=== PATIENT | female | born 1960 | race Hispanic/Latino ===

== ENCOUNTER 2017-07-12 19:40 | Emergency (ER) | payer SELFPAY ==
[2017-07-12] MEDS ORDERED: Ketorolac Tromethamine 30 MG/ML VIAL ONE (22:25)
--- NOTE | 2017-07-12 23:38 | RAD ---
RIGHT KNEE RADIOGRAPHS: Date: 07-12-17 Provided Clinical History: Right knee pain without injury. FINDINGS: No fracture or other acute osseous abnormality is evident. Osteophyte formation is seen about the kne e. Alignment appears anatomic. Joint spaces appear preserved. No evidence for significant knee joint capsular distention. IMPRESSION: Mild degenerative arthrosis of the right knee. POS: [facility]
== END 2017-07-12 23:40 | disposition home or self-care (01) ==
LOC: ERS 19:40
DX: M25.561 Pain in right knee (principal); E78.5 Hyperlipidemia, unspecified; E11.9 Type 2 diabetes mellitus without complications; I10 Essential (primary) hypertension
CPT/HCPCS: 96372; J1885

== ENCOUNTER 2017-07-30 22:52 | Emergency (ER) | payer SELFPAY ==
[2017-07-31] MEDS ORDERED: Ketorolac Tromethamine 30 MG/ML VIAL ONE (00:42)
[2017-07-31] MEDS ORDERED: Lidocaine 1% PF 5 ML VIAL ONE (00:42)
== END 2017-07-31 01:20 | disposition home or self-care (01) ==
LOC: ERS 22:52
DX: K02.9 Dental caries, unspecified (principal); E11.9 Type 2 diabetes mellitus without complications; E78.5 Hyperlipidemia, unspecified; I10 Essential (primary) hypertension
CPT/HCPCS: 96372; J1885; J2001

== ENCOUNTER 2017-12-14 20:13 | Emergency (ER) | payer SELFPAY ==
[2017-12-14 20:55] LABS: Bilirubin Negative (Negative); Blood, Urine Negative (Negative); Clarity CLEAR (Clear); Glucose, Urine (Dipstick) >=1000 mg/dL (Negative); Leukocyte Negative (Negative); Nitrite Negative (Negative); Protein, Urine (Dipstick) Negative (Neg-Trace); Specific Gravity, Urine 1.021 (1.002-1.036); Urobilinogen 0.2 mg/dL (0.2-1.0)
[2017-12-14 21:00] LABS: #Eosinphils 0.1 thou/uL (0.0-0.7); #Lymphocytes 1.6 thou/uL (1.20-3.40); #Monocytes 0.7 thou/uL (0.11-0.59); #Neutrophils 5.3 thou/uL (1.40-6.50); %Basophils 0.4 % (0.0-1.0); %Eosinophils 1.4 % (0.0-10.0); %Lymphocytes 20.4 % (21.0-51.0); %Monocytes 8.9 % (0.0-10.0); %Neutrophils 68.9 % (42.0-75.0); Hemoglobin 13.6 g/dL (12.0-16.0); Mean Corpuscular HGB CONC 33.9 g/dL (32.0-36.0); Mean Corpuscular Hemoglobin 30.2 pg (27.0-31.0); Mean Platelet Volume 8.3 fL (7.4-10.4); Platelet Count 230 thou/uL (130-400); RBC Distribution Width 11.5 % (11.5-14.5); Red Blood Cell (RBC) Count 4.51 mill/uL (4.20-5.40); White Blood Cell (WBC) Count 7.6 thou/uL (4.8-10.8)
[2017-12-14 21:20] LABS: ALT (SGPT) 19 U/L (8-55); AST (SGOT) 17 U/L (5-34); Albumin 4.1 g/dL (3.5-5.0); Alkaline Phosphatase 141 U/L (40-150); Anion Gap 12 mmol/L (10-20); BUN (Urea Nitrogen) 13 mg/dL (9.8-20.1); Bilirubin, Total 0.8 mg/dL (0.2-1.2); Calc. Creatinine Clearance 0 mL/min (70-130); Calcium 9.5 mg/dL (7.8-10.44); Carbon Dioxide 26 mmol/L (22-29); Chloride 99 mmol/L (98-107); Estimated GFR-MDRD 81; Globulin 3.5 g/dL (2.4-3.5); Glucose 352 mg/dL (70-105); Lipase 24 U/L (8-78); Protein, Total 7.6 g/dL (6.0-8.3); Sodium 133 mmol/L (136-145)
[2017-12-14] MEDS ORDERED: Ketorolac Tromethamine 30 MG/ML VIAL ONE (22:11)
--- NOTE | 2017-12-14 23:06 | CT ---
CT ABDOMEN NONCONTRAST CT PELVIS NONCONTRAST: (urolithiasis protocol) DATE: 12/14/17 TIME: 10:40 p.m. HISTORY: 57-year-old female with right flank pain radiating to right lower abdomen. COMPARISON: 09/25/13. TECHNIQUE: IV injection of iodinated contrast media: none Oral contrast media: none FINDINGS: Other than for urolithiasis, the lack of IV and oral contrast limits the evaluation. There is an approximately 1.5 cm wide small defect in the ventral abdominal wall, slightly to the rig ht of midline, through which a disproportionately large amount of intraperitoneal fat has herniated s uperficial to the right lower quadrant abdominal wall. The hernia sac measures approximately 12.5 x 6 .5 x 11 cm. The hernia defect is unchanged in size since 2013. It does not contain any bowel loops. T he uterus is enlarged by multiple uterine fibroids, including calcified ones, similar to prior CT. Th ere are no renal, ureteral, or bladder calculi. No hydronephrosis. The appendix is not identified wit h certainty. No overt signs of acute appendicitis. Moderate amount of colonic stool, especially in th e right hemicolon. Cholecystectomy clips. Within the limitations of a noncontrast scan, no major path ology identified involving the liver, abdominal aorta, kidneys, adrenals, pancreas, urinary bladder o r spleen. No evidence of acute colonic diverticulitis. No small bowel dilation. No free fluid or free air within the abdominal cavity or pelvic cavity. No major interval change is detected compared to 09/25/13. IMPRESSION: 1. No urolithiasis or obstructive uropathy. 2. Fat containing right paramedian ventral hernia at the right lower quadrant. 3. Multiple uterine leiomyomata (fibroids). 4. Status post cholecystectomy. 5. Increased stool in right colon. DELLA R POS: [facility]
== END 2017-12-15 00:30 | disposition home or self-care (01) ==
LOC: ERS 20:13
DX: K43.9 Ventral hernia without obstruction or gangrene (principal); E78.5 Hyperlipidemia, unspecified; E11.9 Type 2 diabetes mellitus without complications; I10 Essential (primary) hypertension
CPT/HCPCS: 36415; 36416; 74176; 80053; 81003; 83690; 85025; 96361; 96374; J1885

== ENCOUNTER 2018-07-27 23:48 | Emergency (ER) | payer SELFPAY | END 2018-07-28 00:16 | disposition home or self-care (01) | LOC: ERS 23:48 | DX: K02.9 Dental caries, unspecified (principal); K03.81 Cracked tooth; E78.5 Hyperlipidemia, unspecified; E11.9 Type 2 diabetes mellitus without complications; I10 Essential (primary) hypertension | CPT/HCPCS: 99282 ==

== ENCOUNTER 2019-01-18 20:26 | Emergency (ER) | payer SELFPAY ==
[2019-01-18] MEDS ORDERED: Ketorolac Tromethamine 60 MG/2 ML VIAL ONE (20:44)
== END 2019-01-18 21:08 | disposition home or self-care (01) ==
LOC: SCSER 20:26
DX: K02.9 Dental caries, unspecified (principal); E78.5 Hyperlipidemia, unspecified; E11.9 Type 2 diabetes mellitus without complications; I10 Essential (primary) hypertension; Z79.899 Other long term (current) drug therapy; Z79.84 Long term (current) use of oral hypoglycemic drugs
CPT/HCPCS: 96372; 99282; J1885

== ENCOUNTER 2019-03-30 19:35 | Observation (INO) | payer SELFPAY ==
[2019-03-30 20:02] LABS: #Eosinphils 0.1 thou/uL (0.0-0.7); #Lymphocytes 1.8 thou/uL (1.20-3.40); #Monocytes 0.6 thou/uL (0.11-0.59); #Neutrophils 4.1 thou/uL (1.40-6.50); %Basophils 0.5 % (0.0-1.0); %Eosinophils 1.7 % (0.0-10.0); %Lymphocytes 26.9 % (21.0-51.0); %Monocytes 9.3 % (0.0-10.0); %Neutrophils 61.6 % (42.0-75.0); Hemoglobin 13.3 g/dL (12.0-16.0); Mean Corpuscular HGB CONC 33.9 g/dL (32.0-36.0); Mean Corpuscular Hemoglobin 30.2 pg (27.0-31.0); Mean Platelet Volume 9.6 fL (7.4-10.4); Platelet Count 204 thou/uL (130-400); RBC Distribution Width 11.5 % (11.5-14.5); Red Blood Cell (RBC) Count 4.39 mill/uL (4.20-5.40); White Blood Cell (WBC) Count 6.7 thou/uL (4.8-10.8)
[2019-03-30 20:20] LABS: ALT (SGPT) 14 U/L (8-55); AST (SGOT) 13 U/L (5-34); Albumin 3.9 g/dL (3.5-5.0); Alkaline Phosphatase 148 U/L (40-110); Anion Gap 14 mmol/L (10-20); BUN (Urea Nitrogen) 14 mg/dL (9.8-20.1); Bilirubin, Total 0.6 mg/dL (0.2-1.2); CK (CPK) 55 U/L (29-168); Calc. Creatinine Clearance 0 mL/min (70-130); Calcium 8.8 mg/dL (7.8-10.44); Carbon Dioxide 24 mmol/L (22-29); Chloride 99 mmol/L (98-107); Estimated GFR-MDRD 58; Globulin 3.1 g/dL (2.4-3.5); Glucose 511 mg/dL (70-105); Lipase 54 U/L (8-78); Potassium 4.1 mmol/L (3.5-5.1); Sodium 133 mmol/L (136-145)
[2019-03-30] MEDS ORDERED: Nitroglycerin 2% Ointment 1 INCH/1 GM Packet ONE (21:06)
[2019-03-30] MEDS ORDERED: Aspirin Chewable 81 MG TAB ONE (21:06)
--- NOTE | 2019-03-30 23:28 | RAD ---
XR Chest 1 View Portable History: Chest pain Comparison: Radiograph March 04, 2016 Findings: Lungs are clear. No pneumothorax or effusion. Cardiac silhouette and mediastinal contours a re within normal limits. No acute osseous abnormality. Right upper quadrant surgical clips. Impression: No acute intrathoracic abnormality.
[2019-03-30 23:31] LABS: Troponin I Less than 0.010 ng/mL (< 0.028)
[2019-03-31 00:35] VITALS: BMI 38.1
[2019-03-31] MEDS ORDERED: Acetaminophen 325 MG TAB PO PRN (00:42)
[2019-03-31 04:44] LABS: Cardiac Risk 3.6 (Less than 4.5); Troponin I Less than 0.010 ng/mL (< 0.028)
[2019-03-31] MEDS ORDERED: Aspirin 325 MG TAB PO SCH (08:00)
[2019-03-31] MEDS ORDERED: FLU VACC QS2019-20(6MOS UP)/PF 60 MCG/0.5 ML SYRINGE IM ONE (09:00)
[2019-03-31 12:26] VITALS: BP 122/57; TEMP 98.6
--- NOTE | 2019-03-31 16:06 | SS ---
DATE OF ADMISSION: 03/31/2019 DATE OF DISCHARGE: 03/31/2019 REASON FOR ADMISSION: Chest pain. HISTORY OF PRESENTING ILLNESS: The patient gives history of having left-sided chest pain, which was 4 to 5/10 in intensity, which started yesterday around 4 p.m. She was sitting quietly when this started. She has had some radiation to the back of this pain. This was associated with shortness of breath. Had some dry cough and felt feverish as well. Had some nasal congestion and postnasal drip as well. All of it started yesterday. No complaints of altered phlegm, palpitations, PND, or orthopnea. Currently, her chest pain has completely resolved. PAST MEDICAL AND SURGICAL HISTORY: Hypertension, diabetes mellitus type 2, dyslipidemia, history of cholecystectomy, , tubal ligation, hypothyroidism. Normal cardiac catheterization done in August of [address] Medina. Ejection fraction was 45% on it. She has had another cardiac cath done in September of 2012 with ejection fraction of 35%. PERSONAL HISTORY: Does not abuse alcohol or drugs. No history of smoking. FAMILY HISTORY: Mother is living and healthy. Father in his 50s from diabetes and its complications. CURRENT MEDICATIONS: The patient is on, 1. Coreg 3.125 mg twice daily. 2. Synthroid 25 mcg p.o. daily. 3. Lisinopril with hydrochlorothiazide 10/12.5 mg p.o. daily. 4. Pravachol 10 mg p.o. at bedtime. 5. Aspirin 81 mg p.o. daily. 6. Metformin 1000 mg daily. ALLERGIES: NO KNOWN DRUG ALLERGIES. CODE STATUS: Full. REVIEW OF SYSTEMS: CONSTITUTIONAL: Negative for weight loss or gain, ability to conduct usual activities. SKIN: Negative for rash, itching. EYES: Negative for double vision, pain. ENT/MOUTH: Negative for nose bleeding, neck stiffness, pain, tenderness. CARDIOVASCULAR: Negative for palpitations, dyspnea on exertion, orthopnea. RESPIRATORY: Negative for shortness of breath, wheezing, cough, hemoptysis, fever or night sweats. GASTROINTESTINAL: Negative for poor appetite, abdominal pain, heartburn, nausea, vomiting, constipation, or diarrhea. GENITOURINARY: Negative for urgency, frequency, dysuria, nocturia. MUSCULOSKELETAL: Negative for pain, swelling. NEUROLOGIC/PSYCHIATRIC: Negative for anxiety, depression. ALLERGY/IMMUNOLOGIC: Negative for skin rash, bleeding tendency. PHYSICAL EXAMINATION: GENERAL: The patient is a 58-year-old female, who is currently not in any acute distress. VITAL SIGNS: Blood pressure 148/66, pulse 74 per minute, respiratory rate 18 per minute, temperature 99.4 degrees Fahrenheit, saturating 98% on room air. NECK: Supple. No elevated JVD. HEENT: Eyes; extraocular muscles intact. Pupils reacting to light. Oral cavity, mucous membranes are moist. No exudates or congestion. CARDIOVASCULAR: S1 and S2 heard. Regular rhythm. RESPIRATORY: Air entry 1+ bilateral. Scattered rhonchi plus no rales or wheezes. ABDOMEN: Soft. Bowel sounds heard. No tenderness, rigidity, or guarding. EXTREMITIES: No peripheral edema or calf tenderness. VASCULAR: Peripheral pulses 2+ bilateral. No ischemic ulcerations or gangrene. CENTRAL NERVOUS SYSTEM: No gross focal deficits noted. The patient is alert, awake, and oriented well. PSYCHIATRIC: The patient's mood is euthymic. No hallucinations or delusions. LABORATORY DATA: Chest x-ray done shows no acute cardiopulmonary abnormality. EKG done shows normal sinus rhythm at 76 beats per minute. There is poor R-wave progression. Total cholesterol 171, triglycerides 151, LDL 93, HDL 48, lipase 54. Troponin x3 negative. BNP 20. AST and ALT within normal limits. Albumin is 3.9. Serum sugar was 511 on admission, but it was around 8 p.m. yesterday. BUN 14, creatinine 0.9, serum bicarb 24. White count of 6, H and H 13 and 39, platelet count 204 with 61% neutrophils, MCV is 89. CLINICAL IMPRESSION AND PLAN: The patient will be shortly discharged home. She has uncontrolled diabetes and atypical chest pain. The patient has had 2 prior cardiac catheterizations done with normal coronaries. Her last coronary catheterization was in August of 2015. The patient takes metformin 1 g daily and has been advised to take it twice daily. She was given Augmentin 875 mg twice daily for upper respiratory infection. She needs to continue all other medications as before including Coreg, Synthroid, lisinopril with hydrochlorothiazide, and Pravachol. She is counseled to follow up with her primary care physician in 1 week, that is at [facility], Dr. Fink. She is otherwise hemodynamically stable and will be shortly discharged home. Please note, this is a same day admit and discharge under observation status. Job ID: [id number]
== END 2019-03-31 13:17 | disposition home or self-care (01) ==
LOC: ERS 19:35 → 2SW 03-31 00:34
PROVIDERS: ADMIT Internal Medicine; ATTEND Internal Medicine
DX: R07.89 Other chest pain (principal); I10 Essential (primary) hypertension; E11.9 Type 2 diabetes mellitus without complications; E03.9 Hypothyroidism, unspecified; Z79.82 Long term (current) use of aspirin; Z79.84 Long term (current) use of oral hypoglycemic drugs; Z79.899 Other long term (current) drug therapy
CPT/HCPCS: 36415; 36416; 71045; 80053; 80061; 82550; 83690; 83880; 84484; 85025; 93005; 94760; 96360; G0378

== ENCOUNTER 2019-08-09 21:53 | Observation (INO) | payer SELFPAY ==
[~2019-08-09 21:53] MED LIST: Iopamidol-370 76% 500 ML 1 ML ONE
[2019-08-09 22:30] LABS: #Basophils 0.1 thou/uL (0.0-0.2); #Eosinphils 0.2 thou/uL (0.0-0.7); #Lymphocytes 1.8 thou/uL (1.20-3.40); #Monocytes 0.6 thou/uL (0.11-0.59); %Basophils 1.1 % (0.0-1.0); %Eosinophils 2.4 % (0.0-10.0); %Monocytes 9.2 % (0.0-10.0); %Neutrophils 60.4 % (42.0-75.0); Hemoglobin 14.2 g/dL (12.0-16.0); Mean Corpuscular HGB CONC 33.2 g/dL (32.0-36.0); Mean Corpuscular Hemoglobin 30.4 pg (27.0-31.0); Mean Corpuscular Volume 91.7 fL (78.0-98.0); Mean Platelet Volume 9.8 fL (7.4-10.4); Platelet Count 229 thou/uL (130-400); RBC Distribution Width 11.3 % (11.5-14.5); Red Blood Cell (RBC) Count 4.68 mill/uL (4.20-5.40); White Blood Cell (WBC) Count 6.6 thou/uL (4.8-10.8)
[2019-08-09] MEDS ORDERED: Acetaminophen 500 MG TAB ONE (22:32)
[2019-08-09] MEDS ORDERED: Nitroglycerin 0.4 MG TAB 1 EACH ONE (22:32)
--- NOTE | 2019-08-09 22:41 | RAD ---
PORTABLE CHEST ONE VIEW: 08/09/19 at 9:45 p.m. HISTORY: Chest pain, dizziness, headache. FINDINGS/IMPRESSION: Comparison made with exam of 03/30/19. The heart size is enlarged. There is mild pulmonary vascular congestion. No lobar consolidation, pne umothoraces, or large effusions are seen. POS: [facility]
[2019-08-09 22:50] LABS: ALT (SGPT) 16 U/L (8-55); AST (SGOT) 14 U/L (5-34); Albumin 4.1 g/dL (3.5-5.0); Alkaline Phosphatase 143 U/L (40-110); Anion Gap 12 mmol/L (10-20); BUN (Urea Nitrogen) 13 mg/dL (9.8-20.1); Bilirubin, Total 0.6 mg/dL (0.2-1.2); Calc. Creatinine Clearance 0 mL/min (70-130); Calcium 9.2 mg/dL (7.8-10.44); Carbon Dioxide 29 mmol/L (22-29); Chloride 98 mmol/L (98-107); Estimated GFR-MDRD 50; Globulin 3.2 g/dL (2.4-3.5); Glucose 529 mg/dL (70-105); Lipase 29 U/L (8-78); Protein, Total 7.3 g/dL (6.0-8.3); Sodium 135 mmol/L (136-145)
[2019-08-09] MEDS ORDERED: Aspirin Chewable 81 MG TAB ONE (23:07)
--- NOTE | 2019-08-09 23:32 | CT ---
CTA CHEST WITH IV CONTRAST AND 3D POSTPROCESSING CTA ABDOMEN WITH IV CONTRAST WITH 3D POSTPROCESSIN08/09/19 HISTORY: Chest pain, headache, abdominal pain. FINDINGS: There is good contrast opacification of the thoracic aorta without aneurysmal dissection. There is go od flow in the celiac axis, SMA, DEEDEE, and both renal arteries. The central pulmonary arteries are well opacified without filling defects to suggest central pulmonar y embolism. No pleural or pericardial effusions are identified. No pneumothoraces, lobar consolidatio n, or lung bases or nodules are seen. No free air or free fluid is noted in the abdomen or pelvis. The patient is post cholecystectomy. The solid organs are unremarkable The small bowel loops are not abnormally dilated. There are degenerative changes in the spine. IMPRESSION: No CT evidence of aortic aneurysm or dissection. POS: [facility]
[2019-08-10 01:15] LABS: Bilirubin Negative (Negative); Blood, Urine Negative (Negative); Clarity Clear (Clear); Glucose, Urine (Dipstick) Greater than 1000 mg/dL (Negative); Leukocyte Negative Leu/uL (Negative); Nitrite Negative (Negative); Protein, Urine (Dipstick) Negative (Neg-Trace); Urobilinogen Normal mg/dL (Less than 2)
[2019-08-10 02:01] LABS: Troponin I Less than 0.010 ng/mL (< 0.028)
[2019-08-10] MEDS ORDERED: Acetaminophen 325 MG TAB PO PRN (02:28)
[2019-08-10] MEDS ORDERED: Acetaminophen 650 MG Suppository PR PRN (02:28)
[2019-08-10] MEDS ORDERED: Nitroglycerin 0.4 MG TAB (25 Tab Bottle) PO PRN (02:33)
[2019-08-10] MEDS ORDERED: Dextrose 50% Abboject 50 ML SYRINGE SLOW IVP PRN (02:57)
[2019-08-10] MEDS ORDERED: HumaLOG 300 UNITS/3 ML VIAL SC PRN ×2 (02:57)
[2019-08-10] MEDS ORDERED: Dextrose 5% in Water 1,000 ML IV PRN (02:57)
[2019-08-10 03:28] VITALS: BMI 34.5
--- NOTE | 2019-08-10 04:15 | HP ---
TIME OF ASSESSMENT: 0100 hours. CHIEF COMPLAINT: Chest tightness and feeling generally unwell. PRIMARY CARE PHYSICIAN: [facility]. HISTORY OF PRESENT ILLNESS: Ms. Hercules is a 58-year-old woman, who is being admitted for ACS rule out, presenting with multiple complaints including chest discomfort that occurred earlier today. The patient states she is unable to describe the sensation in her chest. States at times it feels like a heaviness or pressure, and she is also feeling emotional. The patient denies being under any particularly increased stress. Denies any shortness of breath. She does report having a mild headache and nausea that started earlier this afternoon right before the chest discomfort began. She states she vomited a small amount once. Reports feeling very cold, but denies any recent fevers or sweats. No headaches or dizziness. Denies any abdominal pain or cramping. No urinary symptoms. The patient reports undergoing cardiac catheterization in the past. Per our records, it appears this was done in August [address] Medina. At that time, she was noted to have a normal left main, normal LAD, normal circumflex, and normal right coronary artery. She was noted to have mild left ventricular hypokinesis with an EF of 45% to 50%. 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 ED COURSE: In the Emergency department, the patient underwent an EKG showing normal sinus rhythm with a heart rate of 70. No ST changes or T-wave abnormalities. She had laboratory studies done which demonstrated a white count of 6.6, hemoglobin 14.2, hematocrit 42.9, platelets 229, and neutrophils 60.4%. Alkaline phosphatase 143. LFTs unremarkable. Glucose elevated at 529. Sodium 135, potassium 4.0, chloride 98, carbon dioxide 29, anion gap 12, BUN 13, creatinine 1.12, GFR 50. The patient has chronic kidney disease. Lipase normal. Initial troponin negative. She had a chest x-ray done showing an enlarged heart with mild pulmonary vascular congestion. No lobar consolidation, pneumothoraces, or large effusion seen. The patient had a CT dissection done as well which showed no CT evidence of aortic aneurysm or dissection. She received 243 mg of aspirin, 2 L of normal saline, one dose of nitroglycerin sublingual, and one dose of Tylenol Extra Strength at 1000 mg. PAST MEDICAL HISTORY: 1. Type 2 diabetes mellitus. 2. Hyperlipidemia. 3. Hypertension. PAST SURGICAL HISTORY: 1. Cholecystectomy. 2. . 3. Tubal ligation. 4. CABG. SOCIAL HISTORY: The patient denies any tobacco use, alcohol consumption, or illicit drug use. ALLERGIES: NO KNOWN DRUG ALLERGIES. CURRENT MEDICATIONS: 1. Lisinopril/hydrochlorothiazide. 2. Carvedilol. 3. Nitroglycerin. 4. Metformin. 5. Pravastatin. 6. Aspirin. 7. Levothyroxine. PHYSICAL EXAMINATION: GENERAL: The patient appears generally unwell, but is in no acute distress. VITAL SIGNS: Temperature 98, pulse 71, blood pressure 135/75, respirations 19, and O2 saturation 96% on room air. HEENT: Normocephalic and atraumatic. Pupils are equal, round, and reactive to light. Sclerae without icterus. Oropharynx is clear. NECK: Supple. LUNGS: Clear to auscultation bilaterally without any wheezes, rales, or rhonchi. CARDIAC: Regular rate and rhythm. Mild discomfort with palpation of the anterior chest wall. ABDOMEN: Soft, nontender, nondistended. Normoactive bowel sounds present. No guarding or rigidity. No renal angle tenderness. EXTREMITIES: No lower leg swelling or edema. NEUROLOGIC: Alert and oriented x3. SKIN: Warm and dry. INVESTIGATIONS: As mentioned above in HPI. IMPRESSION AND PLAN: Ms. Diomedes Brower is a 58-year-old woman, who is being admitted for the following. 1. Acute coronary syndrome rule out. We will continue to trend troponins. It has been few years since her last stress test, and she had cardiac catheterization that showed normal coronary arteries back in August of 2015. We will go ahead and plan for stress test in the morning. We will add on TSH, BNP, and lipid panel with a.m. labs. We will continue daily aspirin. 2. General malaise and nausea/vomiting. The patient without any loose stools. Vomiting occurred just once. She does report generalized aching and feeling unwell. We will check for any signs of underlying infection. We will add lactic acid and procalcitonin. We will obtain a urinalysis. We will also screen for influenza. 3. Type 2 diabetes mellitus. Monitor blood glucose. Resume home medications once verified. Initiate sliding scale. 4. Hypertension. Monitor blood pressure and resume home medications once verified. 5. Hyperlipidemia. Resume home medications once verified. As mentioned above, we will obtain lipid panel in the a.m. 6. Chronic kidney disease. The patient has received 2 L of normal saline in the ER. Continue to monitor renal function. 7. Gastrointestinal prophylaxis with famotidine. 8. Deep venous thrombosis prophylaxis. Walking program consulted. 9. Code status, full. Surrogate decision maker is her , Vikram Falk. Case discussed with Dr. Bui, who agrees with plan of care as described above. Job ID: [id number]
[2019-08-10 05:05] LABS: #Basophils 0.1 thou/uL (0.0-0.2); #Eosinphils 0.2 thou/uL (0.0-0.7); #Lymphocytes 2.1 thou/uL (1.20-3.40); #Monocytes 0.6 thou/uL (0.11-0.59); #Neutrophils 3.8 thou/uL (1.40-6.50); %Basophils 1.1 % (0.0-1.0); %Eosinophils 2.4 % (0.0-10.0); %Neutrophils 56.6 % (42.0-75.0); Hemoglobin 12.5 g/dL (12.0-16.0); Mean Corpuscular HGB CONC 33.6 g/dL (32.0-36.0); Mean Corpuscular Hemoglobin 30.7 pg (27.0-31.0); Mean Corpuscular Volume 91.4 fL (78.0-98.0); Mean Platelet Volume 9.8 fL (7.4-10.4); Platelet Count 205 thou/uL (130-400); RBC Distribution Width 11.3 % (11.5-14.5); Red Blood Cell (RBC) Count 4.06 mill/uL (4.20-5.40); White Blood Cell (WBC) Count 6.6 thou/uL (4.8-10.8)
[2019-08-10 05:17] LABS: Hemoglobin A1c Greater than 14.0 % (4.0-6.0)
[2019-08-10 05:21] LABS: Anion Gap 12 mmol/L (10-20); BUN (Urea Nitrogen) 14 mg/dL (9.8-20.1); Calc. Creatinine Clearance 136 mL/min (70-130); Calcium 8.3 mg/dL (7.8-10.44); Carbon Dioxide 25 mmol/L (22-29); Cardiac Risk 3.5 (Less than 4.5); Chloride 104 mmol/L (98-107); Cholesterol 146 mg/dl (< 200 Desired); Estimated GFR-MDRD 86; Glucose 295 mg/dL (70-105); HDL Cholesterol 42 mg/dL (>60 Neg Risk); LDL Cholesterol, Calculated 63 mg/dL; Potassium 3.6 mmol/L (3.5-5.1); Sodium 137 mmol/L (136-145); Triglycerides 204 mg/dL (Less than 150)
[2019-08-10 05:23] LABS: Lactic Acid 1.7 mmol/L (0.5-2.2)
[2019-08-10] MEDS ORDERED: Aspirin 81 mg Enteric Coated Tablet PO SCH (09:00)
[2019-08-10] MEDS ORDERED: Famotidine/PF 20 mg/2ml Vial SLOW IVP SCH (09:00)
--- NOTE | 2019-08-10 13:06 | NM ---
Nuclear medicine cardiac SPECT with EF and wall motion, stress only HISTORY: Chest pain Adenosine sestamibi stress only exam is performed. Patient was injected with 27.7 mCi technetium 99 M sestamibi intravenously for stress images. Multiple SPECT images in the short axis, vertical long axis, horizontal long axis demonstrates no sca n evidence for overt infarct or ischemia. LHR 0.27 EDV 101 mL Ejection fraction 67% Myocardial perfusion wall motion is unremarkable. IMPRESSION: Unremarkable cardiac SPECT stress only with wall motion and ejection fraction.
[2019-08-10 15:33] VITALS: BP 121/58; TEMP 98.2
[2019-08-10] MEDS ORDERED: ADENOSINE 60 MG/20 ML VIAL ONE (16:09)
--- NOTE | 2019-08-10 16:58 | EKG ---
Test Reason : Blood Pressure : / mmHG Vent. Rate : 063 BPM Atrial Rate : 063 BPM P-R Int : 148 ms QRS Dur : 082 ms QT Int : 418 ms P-R-T Axes : 074 024 020 degrees QTc Int : 427 ms Normal sinus rhythm Normal ECG Confirmed by YARI TAVAREZ ([id number]) on 08/10/2019 4:57:57 PM Referred By: CAROL Confirmed By:YARI TAVAREZ
--- NOTE | 2019-08-10 17:28 | DIS ---
DATE OF ADMISSION: 08/10/2019 DATE OF DISCHARGE: 08/10/2019 DISCHARGE DIAGNOSES: 1. Chest pain, noncardiac. 2. General malaise with nausea and vomiting, resolved. 3. Diabetes mellitus type 2, uncontrolled. 4. Hypertension, stable. 5. Hyperlipidemia. CONSULTATIONS: None. PERTINENT LABORATORY DATA AND X-RAY FINDINGS: Creatinine ranged between 0.70 to 1.12, estimated GFR ranged between 50 to 86. Hemoglobin A1c of 14, magnesium level 1.5, alkaline phosphatase 143. Troponin-I negative x3. BNP 29.5. Total cholesterol 146, triglycerides 204, HDL 42, LDL 63. Lipase 29. TSH 7.67. CBC within normal limits. Influenza A and B antigen dated 08/10/[address] of the chest with aortic dissection protocol dated 08/09/2019, showed no evidence of dissection. Portable chest x-ray dated 08/09/2019, showed no acute cardiopulmonary process. 2D transthoracic echocardiogram dated 08/10/2019, showed ejection fraction 50% to 55%. Diastolic dysfunction noted. Cardiolite stress test dated 08/10/2019, showed no evidence for reversible or fixed ischemia with calculated ejection fraction of 67%. HOSPITAL COURSE: The patient was observed on the telemetry unit after initially presenting with chest pain and general malaise. The patient underwent serial cardiac biomarkers x3, which were negative, undergoing Cardiolite stress testing showing no evidence of reversible or fixed ischemia with calculated ejection fraction of 67%. Metabolic screening was essentially unremarkable except for hyperglycemia and a hemoglobin A1c of 14. The patient's presentation secondary to uncontrolled diabetes with recommendations for close followup with her primary care provider for aggressive diabetic management and monitoring. Overall, the patient did remain clinically stable during the hospital course. I have examined the patient at the time of discharge and discussed followup instructions. The patient verbalized understanding and in agreement, ready for discharge on 08/10/2019. DISCHARGE MEDICATIONS: 1. Coreg 3.125 mg p.o. b.i.d. 2. Levothyroxine 25 mcg p.o. daily. 3. Lisinopril/hydrochlorothiazide 10/12.5 mg one tablet p.o. daily. 4. Nitroglycerin 0.4 mg sublingually q.5 minutes p.r.n. chest pain. 5. Pravachol 10 mg p.o. at bedtime. 6. Aspirin 81 mg p.o. daily. 7. Glipizide 5 mg p.o. daily. 8. Metformin 1000 mg p.o. b.i.d. FOLLOWUP: The patient to followup with [facility] in [place], [place] within 7 days of discharge. CONDITION ON DISCHARGE: Fair. ACTIVITY: Ad-carmelo. DIET: ADA and heart healthy. CODE STATUS: Full. DISPOSITION: To home, 08/10/2019. Job ID: [id number]
== END 2019-08-10 16:28 | disposition home or self-care (01) ==
LOC: ERS 21:53 → 2SW 08-10 00:08
PROVIDERS: ADMIT Internal Medicine Sleep Medicine; ATTEND Family Medicine
DX: R07.89 Other chest pain (principal); R53.81 Other malaise; R11.2 Nausea with vomiting, unspecified; E11.65 Type 2 diabetes mellitus with hyperglycemia; I12.9 Hypertensive chronic kidney disease with stage 1 through stage 4 chronic kidney disease, or unspecified chronic kidney disease; E11.22 Type 2 diabetes mellitus with diabetic chronic kidney disease; N18.9 Chronic kidney disease, unspecified; E78.5 Hyperlipidemia, unspecified; Z79.82 Long term (current) use of aspirin; Z79.84 Long term (current) use of oral hypoglycemic drugs; Z79.899 Other long term (current) drug therapy; Z95.1 Presence of aortocoronary bypass graft
CPT/HCPCS: 36415; 36416; 71045; 71275; 72191; 74175; 78452; 80048; 80053; 80061; 81003; 83036; 83605; 83690; 83735; 83880; 84145; 84443; 84484; 85025; 87804; 93005; 93010; 93017; 93306; 94760; 96360; 96361; 96374; A9500; G0378; J0153; Q9967; S0028

== ENCOUNTER 2019-08-31 21:27 | Emergency (ER) | payer OTHER, SELFPAY ==
--- NOTE | 2019-08-31 23:32 | RAD ---
XR Chest Pa Lat STANDARD HISTORY: Cough shortness of breath and night sweats COMPARISON: None. FINDINGS: Heart size is borderline. Mediastinal structures are unremarkable. The lungs are clear of i nfiltrates. There are arthritic changes of the spine. IMPRESSION: Borderline heart size.
== END 2019-09-01 01:25 | disposition home or self-care (01) ==
LOC: ERS 21:27
DX: J06.9 Acute upper respiratory infection, unspecified (principal); E11.9 Type 2 diabetes mellitus without complications; E78.5 Hyperlipidemia, unspecified; E78.00 Pure hypercholesterolemia, unspecified; I10 Essential (primary) hypertension; Z79.899 Other long term (current) drug therapy; Z79.84 Long term (current) use of oral hypoglycemic drugs; Z79.82 Long term (current) use of aspirin
CPT/HCPCS: 71046; 87804

== ENCOUNTER 2019-09-12 18:10 | Emergency (ER) | payer SELFPAY ==
--- NOTE | 2019-09-12 19:21 | ULT ---
ULTRASOUND DOPPLER DUPLEX VENOUS RIGHT LOWER EXTREMITY: DATE: 09/12/2019 HISTORY: 53-year-old female with right lower extremity pain TECHNIQUE: Grayscale, color-flow, and spectral analysis, of major veins of right lower extremity. FINDINGS: There is demonstration of blood flow with normal compressibility, of the right common femoral, profun da femoral, greater saphenous, femoral, popliteal, and posterior tibial, veins. IMPRESSION: Negative. No deep venous thrombosis of right lower extremity.
== END 2019-09-12 19:32 | disposition home or self-care (01) ==
LOC: ERS 18:10
DX: M54.41 Lumbago with sciatica, right side (principal); E11.9 Type 2 diabetes mellitus without complications; E78.5 Hyperlipidemia, unspecified; E78.00 Pure hypercholesterolemia, unspecified; I10 Essential (primary) hypertension; Z79.84 Long term (current) use of oral hypoglycemic drugs; Z79.82 Long term (current) use of aspirin; Z79.899 Other long term (current) drug therapy

== ENCOUNTER 2020-06-05 03:59 | Emergency (ER) | payer SELFPAY ==
[2020-06-05] MEDS ORDERED: Ketorolac Tromethamine 30 MG/ML VIAL ONE (04:20)
--- NOTE | 2020-06-05 07:39 | RAD ---
EXAM: 4 views of the left knee HISTORY: Knee pain COMPARISON: None FINDINGS: No knee effusion is seen. There is no evidence of acute fracture or dislocation. No signifi cant degenerative changes are seen. No soft tissue swelling is present. IMPRESSION: No evidence of acute osseous abnormality.
== END 2020-06-05 04:55 | disposition home or self-care (01) ==
LOC: ERS 03:59
DX: M25.562 Pain in left knee (principal); E11.9 Type 2 diabetes mellitus without complications; E78.5 Hyperlipidemia, unspecified; E78.00 Pure hypercholesterolemia, unspecified; I10 Essential (primary) hypertension; J45.909 Unspecified asthma, uncomplicated; Z95.1 Presence of aortocoronary bypass graft; Z79.82 Long term (current) use of aspirin; Z79.84 Long term (current) use of oral hypoglycemic drugs; Z79.899 Other long term (current) drug therapy
CPT/HCPCS: 96372; J1885

== ENCOUNTER 2020-10-20 10:10 | Emergency (ER) | payer SELFPAY ==
[2020-10-20 10:49] LABS: #Eosinphils 0.1 thou/uL (0.0-0.7); #Lymphocytes 2.2 thou/uL (1.20-3.40); #Monocytes 0.7 thou/uL (0.11-0.59); #Neutrophils 3.7 thou/uL (1.40-6.50); %Basophils 0.3 % (0.0-1.0); %Eosinophils 1.5 % (0.0-10.0); %Lymphocytes 32.3 % (21.0-51.0); %Monocytes 10.8 % (0.0-10.0); %Neutrophils 55.2 % (42.0-75.0); Hemoglobin 13.5 g/dL (12.0-16.0); Mean Corpuscular HGB CONC 32.7 g/dL (32.0-36.0); Mean Corpuscular Hemoglobin 29.6 pg (27.0-31.0); Mean Corpuscular Volume 90.6 fL (78.0-98.0); Mean Platelet Volume 8.2 fL (7.4-10.4); Platelet Count 331 thou/uL (130-400); Red Blood Cell (RBC) Count 4.57 mill/uL (4.20-5.40); White Blood Cell (WBC) Count 6.7 thou/uL (4.8-10.8)
[2020-10-20 11:11] LABS: ALT (SGPT) 17 U/L (8-55); AST (SGOT) 20 U/L (5-34); Albumin 3.9 g/dL (3.5-5.0); Alkaline Phosphatase 81 U/L (40-110); Anion Gap 16 mmol/L (10-20); BUN (Urea Nitrogen) 14 mg/dL (9.8-20.1); Bilirubin, Total 0.9 mg/dL (0.2-1.2); Calc. Creatinine Clearance 0 mL/min (70-130); Calcium 8.9 mg/dL (7.8-10.44); Carbon Dioxide 25 mmol/L (22-29); Chloride 98 mmol/L (98-107); Globulin 2.9 g/dL (2.4-3.5); Glucose 201 mg/dL (70-105); Lipase 18 U/L (8-78); Potassium 3.7 mmol/L (3.5-5.1); Protein, Total 6.8 g/dL (6.0-8.3); Sodium 135 mmol/L (136-145)
[2020-10-20] MEDS ORDERED: Dexamethasone 10 MG/ML VIAL ONE (11:27)
[2020-10-20] MEDS ORDERED: Ketorolac Tromethamine 30 MG/ML VIAL ONE (11:27)
== END 2020-10-20 14:45 | disposition home or self-care (01) ==
LOC: ERS 10:10
DX: R07.89 Other chest pain (principal); M16.11 Unilateral primary osteoarthritis, right hip; E11.9 Type 2 diabetes mellitus without complications; E03.9 Hypothyroidism, unspecified; E78.5 Hyperlipidemia, unspecified; Z79.899 Other long term (current) drug therapy; Z79.84 Long term (current) use of oral hypoglycemic drugs; Z79.82 Long term (current) use of aspirin
CPT/HCPCS: 36415; 71045; 80053; 83690; 84484; 85025; 93005; 96374; 96375; J1100; J1885

== ENCOUNTER 2020-11-02 15:14 | Observation (INO) | payer SELFPAY ==
[2020-11-02 15:52] LABS: #Basophils 0.1 thou/uL (0.0-0.2); #Eosinphils 0.1 thou/uL (0.0-0.7); #Lymphocytes 2.2 thou/uL (1.20-3.40); #Monocytes 0.6 thou/uL (0.11-0.59); #Neutrophils 5.3 thou/uL (1.40-6.50); %Basophils 0.6 % (0.0-1.0); %Eosinophils 1.2 % (0.0-10.0); %Lymphocytes 25.9 % (21.0-51.0); %Monocytes 7.7 % (0.0-10.0); %Neutrophils 64.5 % (42.0-75.0); Hemoglobin 13.5 g/dL (12.0-16.0); Mean Corpuscular HGB CONC 32.1 g/dL (32.0-36.0); Mean Corpuscular Hemoglobin 29.2 pg (27.0-31.0); Mean Platelet Volume 8.7 fL (7.4-10.4); Platelet Count 254 thou/uL (130-400); RBC Distribution Width 12.6 % (11.5-14.5); Red Blood Cell (RBC) Count 4.61 mill/uL (4.20-5.40); White Blood Cell (WBC) Count 8.3 thou/uL (4.8-10.8)
[2020-11-02] MEDS ORDERED: Aspirin Chewable 81 MG TAB ONE (16:05)
[2020-11-02] MEDS ORDERED: Nitroglycerin 2% Ointment 1 INCH/1 GM Packet ONE (16:05)
[2020-11-02 16:16] LABS: ALT (SGPT) 22 U/L (8-55); AST (SGOT) 17 U/L (5-34); Albumin 3.9 g/dL (3.5-5.0); Alkaline Phosphatase 88 U/L (40-110); Anion Gap 16 mmol/L (10-20); BUN (Urea Nitrogen) 14 mg/dL (9.8-20.1); Bilirubin, Total 0.7 mg/dL (0.2-1.2); Calc. Creatinine Clearance 0 mL/min (70-130); Calcium 9.3 mg/dL (7.8-10.44); Carbon Dioxide 25 mmol/L (22-29); Chloride 101 mmol/L (98-107); Globulin 2.9 g/dL (2.4-3.5); Glucose 288 mg/dL (70-105); Lipase 30 U/L (8-78); Potassium 3.7 mmol/L (3.5-5.1); Protein, Total 6.8 g/dL (6.0-8.3); Sodium 138 mmol/L (136-145)
[2020-11-02 18:43] VITALS: BMI 32.6
[2020-11-02] MEDS ORDERED: Ondansetron PF 4 MG/2 ML Vial IVP PRN (18:45)
[2020-11-02] MEDS ORDERED: Acetaminophen 325 MG TAB PO PRN ×2 (18:45→19:12)
[2020-11-02] MEDS ORDERED: Ondansetron ODT 4 MG TAB SL PRN (18:45)
[2020-11-02 19:11] LABS: Troponin I Less than 0.010 ng/mL (< 0.028)
[2020-11-02] MEDS ORDERED: Senokot S 8.6-50 MG TAB PO PRN (19:12)
[2020-11-02] MEDS ORDERED: Acetaminophen 650 MG Suppository PR PRN (19:12)
[2020-11-02] MEDS ORDERED: Dextrose 5% in Water 1,000 ML IV PRN (19:29)
[2020-11-02] MEDS ORDERED: Dextrose 50% Abboject 50 ML SYRINGE SLOW IVP PRN (19:29)
[2020-11-02] MEDS ORDERED: HumaLOG 300 UNITS/3 ML VIAL SC PRN ×2 (19:29)
[2020-11-02 20:07] LABS: CRP (Inflammatory) Less than 0.50 mg/dL (= or < 0.5); Lactic Acid 3.1 mmol/L (0.5-2.2); Magnesium 1.9 mg/dL (1.6-2.6)
[2020-11-02] MEDS: Famotidine 20 MG TAB PO SCH (20:45)
[2020-11-02] MEDS: HYDROcodone/Acetaminophen 7.5/325 mg Tablet PO PRN (21:08)
[2020-11-02] MEDS ORDERED: Sodium Chloride 0.9% 1,000 ML IV SCH (21:15)
[2020-11-02] MEDS ORDERED: Ketorolac Tromethamine 30 MG/ML VIAL IVP SCH (23:00)
[2020-11-03 02:30] LABS: SARS-CoV-2 NAA Rapid Test DETECTED (NotDetected)
[2020-11-03] MEDS: HYDROcodone/Acetaminophen 7.5/325 mg Tablet PO PRN (03:11)
[2020-11-03] MEDS ORDERED: Morphine 4 MG/ML VIAL SLOW IVP PRN (03:56)
[2020-11-03 05:08] LABS: #Basophils 0.1 thou/uL (0.0-0.2); #Eosinphils 0.1 thou/uL (0.0-0.7); #Lymphocytes 2.8 thou/uL (1.20-3.40); #Monocytes 0.7 thou/uL (0.11-0.59); #Neutrophils 3.4 thou/uL (1.40-6.50); %Basophils 1.3 % (0.0-1.0); %Eosinophils 1.7 % (0.0-10.0); %Lymphocytes 39.4 % (21.0-51.0); %Monocytes 9.3 % (0.0-10.0); %Neutrophils 48.2 % (42.0-75.0); Hemoglobin 12.4 g/dL (12.0-16.0); Mean Corpuscular Hemoglobin 30.1 pg (27.0-31.0); Mean Corpuscular Volume 91.3 fL (78.0-98.0); Mean Platelet Volume 8.3 fL (7.4-10.4); Platelet Count 224 thou/uL (130-400); RBC Distribution Width 12.8 % (11.5-14.5); Red Blood Cell (RBC) Count 4.12 mill/uL (4.20-5.40)
[2020-11-03 05:28] LABS: Anion Gap 13 mmol/L (10-20); BUN (Urea Nitrogen) 15 mg/dL (9.8-20.1); Calc. Creatinine Clearance 113 mL/min (70-130); Calcium 8.4 mg/dL (7.8-10.44); Carbon Dioxide 23 mmol/L (22-29); Cardiac Risk 3.9 (Less than 4.5); Chloride 105 mmol/L (98-107); Cholesterol 189 mg/dl (< 200 Desired); Glucose 170 mg/dL (70-105); HDL Cholesterol 49 mg/dL (>60 Neg Risk); LDL Cholesterol, Calculated 92 mg/dL; Potassium 3.7 mmol/L (3.5-5.1); Sodium 137 mmol/L (136-145); Triglycerides 242 mg/dL (Less than 150)
[2020-11-03] MEDS ORDERED: Albuterol Sulfate 2.5 mg/3 ml Neb NEB PRN (07:29)
[2020-11-03] MEDS: Famotidine 20 MG TAB PO SCH (07:54)
[2020-11-03 08:54] VITALS: BP 132/70; TEMP 98.5
[2020-11-03] MEDS ORDERED: Aspirin Chewable 81 MG TAB PO SCH (09:00)
[2020-11-03] MEDS ORDERED: Lisinopril/Hydrochlorothiazide 10 mg/12.5 mg Tablet PO SCH (09:00)
[2020-11-03] MEDS ORDERED: Carvedilol 3.125 MG TAB PO SCH (09:00)
[2020-11-03] MEDS ORDERED: Atorvastatin Calcium 20 MG TAB PO SCH (09:00)
[2020-11-04] MEDS ORDERED: Levothyroxine Sodium 25 MCG TAB PO SCH (06:00)
== END 2020-11-03 10:51 | disposition home or self-care (01) ==
LOC: ERS 15:14 → 2SW 16:59
PROVIDERS: ADMIT Internal Medicine; ATTEND Internal Medicine
DX: U07.1 COVID-19 (principal); R07.89 Other chest pain; R53.1 Weakness; I10 Essential (primary) hypertension; E11.9 Type 2 diabetes mellitus without complications; E03.9 Hypothyroidism, unspecified; M17.11 Unilateral primary osteoarthritis, right knee; K59.00 Constipation, unspecified; I08.1 Rheumatic disorders of both mitral and tricuspid valves; E78.5 Hyperlipidemia, unspecified; M19.90 Unspecified osteoarthritis, unspecified site; J45.909 Unspecified asthma, uncomplicated; I25.10 Atherosclerotic heart disease of native coronary artery without angina pectoris; E78.00 Pure hypercholesterolemia, unspecified; E66.9 Obesity, unspecified; Z68.32 Body mass index [BMI] 32.0-32.9, adult; Z79.82 Long term (current) use of aspirin; Z79.84 Long term (current) use of oral hypoglycemic drugs; Z79.899 Other long term (current) drug therapy; Z95.1 Presence of aortocoronary bypass graft
CPT/HCPCS: 36415; 36416; 71045; 80048; 80053; 80061; 82010; 83605; 83690; 83735; 84484; 85025; 85379; 86140; 87635; 93005; 96374; 96375; G0378; J1815; J1885; J2270; Q0162; U0002; U0003; U0005

== ENCOUNTER 2021-09-24 19:35 | Emergency (ER) | payer SELFPAY ==
[2021-09-24] MEDS ORDERED: HYDROcodone/Acetaminophen 5/325 mg Tablet ONE (20:05)
== END 2021-09-24 20:14 | disposition home or self-care (01) ==
LOC: ERS 19:35
DX: M54.42 Lumbago with sciatica, left side (principal); E11.9 Type 2 diabetes mellitus without complications; E78.5 Hyperlipidemia, unspecified; I10 Essential (primary) hypertension; Z79.899 Other long term (current) drug therapy; Z79.84 Long term (current) use of oral hypoglycemic drugs
CPT/HCPCS: 99283

== ENCOUNTER 2021-10-22 19:32 | Emergency (ER) | payer SELFPAY ==
[2021-10-22 21:59] LABS: #Basophils 0.1 thou/uL (0.0-0.2); #Eosinphils 0.2 thou/uL (0.0-0.7); #Lymphocytes 1.8 thou/uL (1.20-3.40); #Monocytes 0.8 thou/uL (0.11-0.59); #Neutrophils 5.2 thou/uL (1.40-6.50); %Basophils 0.8 % (0.0-1.0); %Eosinophils 2.5 % (0.0-10.0); %Lymphocytes 22.2 % (21.0-51.0); %Monocytes 10.1 % (0.0-10.0); %Neutrophils 64.4 % (42.0-75.0); Hemoglobin 12.6 g/dL (12.0-16.0); Mean Corpuscular HGB CONC 32.3 g/dL (32.0-36.0); Mean Corpuscular Hemoglobin 30.2 pg (27.0-31.0); Mean Corpuscular Volume 93.3 fL (78.0-98.0); Mean Platelet Volume 8.4 fL (7.4-10.4); Platelet Count 298 thou/uL (130-400); RBC Distribution Width 12.5 % (11.5-14.5); Red Blood Cell (RBC) Count 4.18 mill/uL (4.20-5.40); White Blood Cell (WBC) Count 8.1 thou/uL (4.8-10.8)
[2021-10-22 22:27] LABS: ALT (SGPT) 13 U/L (8-55); AST (SGOT) 12 U/L (5-34); Albumin 3.8 g/dL (3.5-5.0); Alkaline Phosphatase 156 U/L (40-110); Anion Gap 13 mmol/L (10-20); BUN (Urea Nitrogen) 15 mg/dL (9.8-20.1); Bilirubin, Total 0.7 mg/dL (0.2-1.2); Calc. Creatinine Clearance 0 mL/min (70-130); Carbon Dioxide 28 mmol/L (22-29); Chloride 98 mmol/L (98-107); Globulin 3.2 g/dL (2.4-3.5); Glucose 397 mg/dL (70-105); Potassium 3.8 mmol/L (3.5-5.1); Sodium 135 mmol/L (136-145)
[2021-10-22 22:31] LABS: Troponin I Less than 0.010 ng/mL (< 0.028)
== END 2021-10-22 23:48 | disposition home or self-care (01) ==
LOC: ERS 19:32
DX: R06.02 Shortness of breath (principal); M54.32 Sciatica, left side; E11.9 Type 2 diabetes mellitus without complications; E78.5 Hyperlipidemia, unspecified; E78.00 Pure hypercholesterolemia, unspecified; I10 Essential (primary) hypertension; J45.909 Unspecified asthma, uncomplicated
CPT/HCPCS: 71045; 80053; 83880; 84484; 85025; 93005

== ENCOUNTER 2021-11-24 10:36 | Inpatient (IN) | payer SELFPAY ==
[2021-11-24 11:07] LABS: #Eosinphils 0.1 thou/uL (0.0-0.7); #Lymphocytes 1.3 thou/uL (1.20-3.40); #Monocytes 0.6 thou/uL (0.11-0.59); #Neutrophils 5.1 thou/uL (1.40-6.50); %Basophils 0.3 % (0.0-1.0); %Eosinophils 2.1 % (0.0-10.0); %Lymphocytes 17.8 % (21.0-51.0); %Monocytes 8.8 % (0.0-10.0); %Neutrophils 71.1 % (42.0-75.0); Hemoglobin 12.3 g/dL (12.0-16.0); Mean Corpuscular Hemoglobin 30.7 pg (27.0-31.0); Mean Corpuscular Volume 92.9 fL (78.0-98.0); Mean Platelet Volume 8.3 fL (7.4-10.4); Platelet Count 259 thou/uL (130-400); Red Blood Cell (RBC) Count 4.01 mill/uL (4.20-5.40); White Blood Cell (WBC) Count 7.2 thou/uL (4.8-10.8)
[2021-11-24 11:24] LABS: ALT (SGPT) 14 U/L (8-55); AST (SGOT) 15 U/L (5-34); Albumin 3.7 g/dL (3.5-5.0); Alkaline Phosphatase 111 U/L (40-110); Anion Gap 15 mmol/L (10-20); BUN (Urea Nitrogen) 22 mg/dL (9.8-20.1); Bilirubin, Total 0.7 mg/dL (0.2-1.2); Calc. Creatinine Clearance 0 mL/min (70-130); Calcium 8.1 mg/dL (7.8-10.44); Carbon Dioxide 25 mmol/L (22-29); Chloride 99 mmol/L (98-107); Globulin 2.8 g/dL (2.4-3.5); Glucose 468 mg/dL (70-105); Lipase 27 U/L (8-78); Potassium 4.1 mmol/L (3.5-5.1); Protein, Total 6.5 g/dL (6.0-8.3); Sodium 135 mmol/L (136-145)
[2021-11-24] MEDS ORDERED: Insulin Regular 300 UNITS/3 ML VIAL ONE (13:48)
[2021-11-24] MEDS ORDERED: Aspirin Chewable 81 MG TAB ONE (14:31)
[2021-11-24] MEDS ORDERED: HYDROcodone/Acetaminophen 7.5/325 mg Tablet PO PRN (16:38)
[2021-11-24] MEDS ORDERED: Dextrose 50% Abboject 50 ML SYRINGE SLOW IVP PRN (16:39)
[2021-11-24] MEDS ORDERED: hydrALAZINE 20 MG/ML VIAL SLOW IVP PRN (16:39)
[2021-11-24] MEDS ORDERED: HumaLOG 300 UNITS/3 ML VIAL SC PRN ×2 (16:39)
[2021-11-24] MEDS ORDERED: Dextrose 5% in Water 1,000 ML IV PRN (16:39)
[2021-11-24] MEDS ORDERED: Nitroglycerin 0.4 MG TAB (25 Tab Bottle) SL SCH (16:45)
[2021-11-24 16:58] VITALS: BMI 35.5
[2021-11-24] MEDS ORDERED: Albuterol 200 PUFF (6.7GM INHALER) INH PRN (17:02)
[2021-11-24] MEDS: metFORMIN 500 MG TAB PO SCH (17:58)
[2021-11-24] MEDS: Carvedilol 3.125 MG TAB PO SCH (21:39)
[2021-11-24] MEDS: Heparin 5,000 UNITS/ML VIAL SC SCH (21:40)
[2021-11-25 05:34] LABS: Hemoglobin A1c 11.7 % (4.0-6.0)
[2021-11-25 05:52] LABS: Cardiac Risk 4.7 (Less than 4.5)
[2021-11-25] MEDS ORDERED: Levothyroxine Sodium 25 MCG TAB PO SCH (06:00)
[2021-11-25] MEDS: metFORMIN 500 MG TAB PO SCH (08:00)
[2021-11-25] MEDS ORDERED: Atorvastatin Calcium 20 MG TAB PO SCH (09:00)
[2021-11-25] MEDS ORDERED: Lisinopril/Hydrochlorothiazide 10 mg/12.5 mg Tablet PO SCH (09:00)
[2021-11-25] MEDS ORDERED: Empagliflozin 25 MG TAB PO SCH (09:00)
[2021-11-25] MEDS ORDERED: Aspirin Chewable 81 MG TAB PO SCH (09:00)
[2021-11-25] MEDS ORDERED: Aspirin 81 mg Enteric Coated Tablet PO SCH (09:00)
[2021-11-25] MEDS: Carvedilol 3.125 MG TAB PO SCH (10:54)
[2021-11-25] MEDS: Heparin 5,000 UNITS/ML VIAL SC SCH (10:55)
[2021-11-25] MEDS ORDERED: Regadenoson 0.4 MG/5 ML SYRINGE ONE (12:37)
[2021-11-25 15:32] VITALS: BP 106/53; TEMP 97.9
== END 2021-11-25 16:47 | disposition home or self-care (01) | DRG 313 ==
LOC: ERS 10:36 → 2SW 15:44 → OBSVTOIN 11-25 10:36
PROVIDERS: ADMIT Internal Medicine; ATTEND Internal Medicine
DX: R07.89 Other chest pain (principal); Z20.822 Contact with and (suspected) exposure to COVID-19; E11.9 Type 2 diabetes mellitus without complications; E78.5 Hyperlipidemia, unspecified; I10 Essential (primary) hypertension; E66.01 Morbid (severe) obesity due to excess calories; M19.90 Unspecified osteoarthritis, unspecified site; I25.10 Atherosclerotic heart disease of native coronary artery without angina pectoris; J45.909 Unspecified asthma, uncomplicated; Z79.82 Long term (current) use of aspirin; Z79.890 Hormone replacement therapy; Z79.84 Long term (current) use of oral hypoglycemic drugs; Z79.51 Long term (current) use of inhaled steroids; Z79.899 Other long term (current) drug therapy; Z98.51 Tubal ligation status; Z95.1 Presence of aortocoronary bypass graft; Z90.49 Acquired absence of other specified parts of digestive tract; Z68.35 Body mass index [BMI] 35.0-35.9, adult
CPT/HCPCS: 36415; 36416; 71045; 78452; 80053; 80061; 83036; 83690; 84443; 84484; 85025; 93005; 93017; 93306; 94760; A9500; J1644; J1815; U0003; U0005

== ENCOUNTER 2022-04-24 07:04 | Emergency (ER) | payer SELFPAY ==
[2022-04-24 07:30] LABS: #Eosinphils 0.1 thou/uL (0.0-0.7); #Lymphocytes 1.5 thou/uL (1.20-3.40); #Monocytes 0.5 thou/uL (0.11-0.59); #Neutrophils 2.9 thou/uL (1.40-6.50); %Basophils 0.4 % (0.0-1.0); %Eosinophils 2.6 % (0.0-10.0); %Lymphocytes 29.1 % (21.0-51.0); %Monocytes 9.8 % (0.0-10.0); %Neutrophils 58.1 % (42.0-75.0); Hemoglobin 12.2 g/dL (12.0-16.0); Mean Corpuscular HGB CONC 32.5 g/dL (32.0-36.0); Mean Corpuscular Hemoglobin 30.2 pg (27.0-31.0); Mean Corpuscular Volume 92.8 fl (78.0-98.0); Mean Platelet Volume 8.4 fL (7.4-10.4); Platelet Count 241 thou/uL (130-400); RBC Distribution Width 12.8 % (11.5-14.5); Red Blood Cell (RBC) Count 4.05 mill/uL (4.20-5.40)
[2022-04-24 07:49] LABS: ALT (SGPT) 15 U/L (8-55); AST (SGOT) 14 U/L (5-34); Albumin 3.5 g/dL (3.5-5.0); Alkaline Phosphatase 109 U/L (40-110); Anion Gap 8 mmol/L (10-20); BUN (Urea Nitrogen) 10 mg/dL (9.8-20.1); Bilirubin, Total 0.9 mg/dL (0.2-1.2); Calc. Creatinine Clearance 0 mL/min (70-130); Calcium 8.5 mg/dL (7.8-10.44); Carbon Dioxide 28 mmol/L (22-29); Chloride 106 mmol/L (98-107); Estimated GFR 100; Glucose 250 mg/dL (70-105); Lipase 10 U/L (8-78); Protein, Total 6.5 g/dL (6.0-8.3); Sodium 138 mmol/L (136-145)
[2022-04-24] MEDS ORDERED: Ondansetron PF 4 MG/2 ML Vial ONE (08:03)
[2022-04-24] MEDS ORDERED: Morphine 4 MG/ML VIAL ONE (08:03)
[2022-04-24 08:13] LABS: Bacteria/HPF None Seen HPF (None Seen); Bilirubin Negative (Negative); Blood, Urine Negative (Negative); Clarity Clear (Clear); Glucose, Urine (Dipstick) Greater than 1000 mg/dL (Negative); Ketone, Urine Negative (Negative); Leukocyte 75 Leu/uL (Negative); Nitrite Negative (Negative); Protein, Urine (Dipstick) Negative (Neg-Trace); RBC/HPF 0-3 HPF (0-3); Specific Gravity, Urine 1.026 (1.002-1.036); Squamous Epithelial 0-3 HPF (0-3); Urobilinogen Normal mg/dL (Less than 2); WBC/HPF 0-3 HPF (0-3); pH, Urine 5.5 (5.0-9.0)
[2022-04-24] MEDS ORDERED: Iopamidol-370 76% 500 ML 1 ML ONE (10:00)
== END 2022-04-24 10:15 ==
LOC: ERS 07:04
DX: R10.12 Left upper quadrant pain (principal); E11.9 Type 2 diabetes mellitus without complications; E78.00 Pure hypercholesterolemia, unspecified; I10 Essential (primary) hypertension; Z79.4 Long term (current) use of insulin; Z79.84 Long term (current) use of oral hypoglycemic drugs
CPT/HCPCS: 36415; 74177; 80053; 81003; 81015; 83690; 84484; 85025; 93005; 94760; 96374; 96375; J2270; J2405; Q9967

== ENCOUNTER 2022-05-13 07:05 | Emergency (ER) | payer SELFPAY ==
[2022-05-13] MEDS ORDERED: Mag-Al 1200 mg/1200 mg/30 ML UDCUP ONE (07:55)
[2022-05-13] MEDS ORDERED: Lidocaine Viscous Sol 2% 15 ml UD Cup ONE (07:55)
[2022-05-13 08:07] LABS: #Eosinphils 0.2 thou/uL (0.0-0.7); #Lymphocytes 1.8 thou/uL (1.20-3.40); #Neutrophils 4.4 thou/uL (1.40-6.50); %Basophils 0.4 % (0.0-1.0); %Eosinophils 2.1 % (0.0-10.0); %Lymphocytes 24.4 % (21.0-51.0); %Monocytes 13.1 % (0.0-10.0); Hemoglobin 12.5 g/dL (12.0-16.0); Mean Corpuscular Hemoglobin 30.5 pg (27.0-31.0); Mean Corpuscular Volume 92.3 fl (78.0-98.0); Mean Platelet Volume 8.8 fL (7.4-10.4); Platelet Count 238 10x3/uL (130-400); RBC Distribution Width 12.5 % (11.5-14.5); Red Blood Cell (RBC) Count 4.09 mill/uL (4.20-5.40); White Blood Cell (WBC) Count 7.3 10x3/uL (4.8-10.8)
[2022-05-13 08:15] LABS: ALT (SGPT) 19 U/L (8-55); AST (SGOT) 25 U/L (5-34); Albumin 3.5 g/dL (3.5-5.0); Alkaline Phosphatase 124 U/L (40-110); Anion Gap 11 mmol/L (10-20); BUN (Urea Nitrogen) 11 mg/dL (9.8-20.1); Bilirubin, Total 0.5 mg/dL (0.2-1.2); Calc. Creatinine Clearance 0 mL/min (70-130); Calcium 8.3 mg/dL (7.8-10.44); Carbon Dioxide 25 mmol/L (22-29); Chloride 106 mmol/L (98-107); Estimated GFR 99; Globulin 2.7 g/dL (2.4-3.5); Glucose 212 mg/dL (70-105); Lipase 20 U/L (8-78); Potassium 3.9 mmol/L (3.5-5.1); Protein, Total 6.2 g/dL (6.0-8.3); Sodium 138 mmol/L (136-145)
[2022-05-13] MEDS ORDERED: Morphine 4 MG/ML VIAL ONE (08:39)
[2022-05-13 09:41] LABS: Bilirubin Negative (Negative); Blood, Urine Negative (Negative); Clarity Clear (Clear); Glucose, Urine (Dipstick) Greater than 1000 mg/dL (Negative); Ketone, Urine Negative (Negative); Leukocyte Negative Leu/uL (Negative); Nitrite Negative (Negative); Protein, Urine (Dipstick) Negative (Neg-Trace); Specific Gravity, Urine 1.035 (1.002-1.036); Urobilinogen Normal mg/dL (Less than 2); pH, Urine 5.5 (5.0-9.0)
== END 2022-05-13 12:04 | disposition home or self-care (01) ==
LOC: ERS 07:05
DX: R10.12 Left upper quadrant pain (principal); E11.9 Type 2 diabetes mellitus without complications; E78.5 Hyperlipidemia, unspecified; E78.00 Pure hypercholesterolemia, unspecified; I10 Essential (primary) hypertension; Z79.84 Long term (current) use of oral hypoglycemic drugs; Z79.899 Other long term (current) drug therapy
CPT/HCPCS: 36415; 80053; 81003; 83605; 83690; 84484; 85025; 93005; 94760; 96374; J2270

== ENCOUNTER 2023-07-08 15:50 | Observation (INO) | payer SELFPAY ==
[2023-07-08 17:20] LABS: #Basophils 0.1 thou/uL (0.0-0.2); #Eosinphils 0.1 thou/uL (0.0-0.7); #Monocytes 0.7 thou/uL (0.11-0.59); #Neutrophils 6.6 thou/uL (1.40-6.50); %Basophils 0.5 % (0.0-1.0); %Eosinophils 1.4 % (0.0-10.0); %Lymphocytes 19.3 % (21.0-51.0); %Monocytes 7.8 % (0.0-10.0); %Neutrophils 70.8 % (42.0-75.0); Hematocrit 40.3 % (36.0-47.0); Hemoglobin 13.4 g/dL (12.0-16.0); Mean Corpuscular HGB CONC 33.3 g/dL (32.0-36.0); Mean Corpuscular Hemoglobin 29.9 pg (27.0-31.0); Mean Platelet Volume 11.4 fL (7.4-10.4); Platelet Count 295 10x3/uL (130-400); RBC Distribution Width 12.5 % (11.5-14.5); Red Blood Cell (RBC) Count 4.48 mill/uL (4.20-5.40); White Blood Cell (WBC) Count 9.3 10x3/uL (4.8-10.8)
[2023-07-08 17:41] LABS: ALT (SGPT) 11 U/L (8-55); AST (SGOT) 12 U/L (5-34); Albumin 3.7 g/dL (3.4-4.8); Alkaline Phosphatase 131 U/L (40-110); Anion Gap 16 mmol/L (10-20); BUN (Urea Nitrogen) 19 mg/dL (9.8-20.1); Bilirubin, Total 0.9 mg/dL (0.2-1.2); Calc. Creatinine Clearance 0 mL/min (70-130); Calcium 8.6 mg/dL (7.8-10.44); Carbon Dioxide 24 mmol/L (23-31); Chloride 97 mmol/L (98-107); Estimated GFR 67; Globulin 3.1 g/dL (2.4-3.5); Lipase 27 U/L (8-78); Potassium 4.3 mmol/L (3.5-5.1); Protein, Total 6.8 g/dL (5.8-8.1); Sodium 133 mmol/L (136-145)
[2023-07-08 17:45] LABS: Troponin I Less than 0.010 ng/mL (< 0.028)
[2023-07-08 17:49] LABS: Critical Call Chemistry NUR.KR7@1748; Glucose 485 mg/dL (80-115)
[2023-07-08] MEDS ORDERED: Aspirin Chewable 81 MG TAB ONE (17:52)
[2023-07-08] MEDS ORDERED: Glucagon 1 MG/ML KIT IM PRN (18:24)
[2023-07-08] MEDS ORDERED: Acetaminophen 325 MG TAB PO PRN (18:24)
[2023-07-08] MEDS ORDERED: Acetaminophen 650 MG Suppository PR PRN (18:24)
[2023-07-08] MEDS ORDERED: Dextrose 5% in Water 1,000 ML IV PRN (18:24)
[2023-07-08] MEDS ORDERED: Dextrose 50% Abboject 50 ML SYRINGE SLOW IVP PRN (18:24)
[2023-07-08] MEDS ORDERED: Ondansetron ODT 4 MG TAB PO PRN (18:24)
[2023-07-08] MEDS ORDERED: Ondansetron PF 4 MG/2 ML Vial IVP PRN (18:24)
[2023-07-08] MEDS ORDERED: HumaLOG 300 UNITS/3 ML VIAL SC PRN (18:25)
[2023-07-08] MEDS ORDERED: Nitroglycerin 0.4 MG TAB (25 Tab Bottle) SL PRN (18:25)
[2023-07-08] MEDS ORDERED: Sodium Chloride 0.9% 1,000 ML IV SCH (18:30)
[2023-07-08 19:12] LABS: Hemoglobin A1c Greater than 14.0 % (4.0-6.0)
[2023-07-08 19:14] LABS: Magnesium 1.9 mg/dL (1.6-2.6)
[2023-07-08] MEDS ORDERED: Insulin Regular 300 UNITS/3 ML VIAL ONE (19:26)
[2023-07-08] MEDS: Atorvastatin Calcium 40 MG TAB PO SCH (22:00)
[2023-07-08 22:11] VITALS: BMI 33.0
[2023-07-08] MEDS: Famotidine 20 MG TAB PO SCH (22:17)
[2023-07-08] MEDS: HumuLIN 70/30 100 Unit/ml 10 ml Vial SC SCH (22:18)
[2023-07-08 23:35] LABS: Troponin I Less than 0.010 ng/mL (< 0.028)
[2023-07-09 00:18] LABS: Troponin I Less than 0.010 ng/mL (< 0.028)
[2023-07-09] MEDS ORDERED: Albuterol 200 PUFF (6.7GM INHALER) INH PRN (01:32)
[2023-07-09 05:03] LABS: #Eosinphils 0.2 thou/uL (0.0-0.7); #Monocytes 0.9 thou/uL (0.11-0.59); #Neutrophils 4.7 thou/uL (1.40-6.50); %Basophils 0.4 % (0.0-1.0); %Eosinophils 1.7 % (0.0-10.0); %Lymphocytes 40.8 % (21.0-51.0); %Neutrophils 47.9 % (42.0-75.0); Hematocrit 37.8 % (36.0-47.0); Hemoglobin 12.6 g/dL (12.0-16.0); Mean Corpuscular HGB CONC 33.3 g/dL (32.0-36.0); Mean Corpuscular Hemoglobin 30.1 pg (27.0-31.0); Mean Corpuscular Volume 90.2 fl (78.0-98.0); Mean Platelet Volume 11.2 fL (7.4-10.4); Platelet Count 296 10x3/uL (130-400); RBC Distribution Width 12.5 % (11.5-14.5); Red Blood Cell (RBC) Count 4.19 mill/uL (4.20-5.40); White Blood Cell (WBC) Count 9.8 10x3/uL (4.8-10.8)
[2023-07-09 05:20] LABS: Anion Gap 12 mmol/L (10-20); BUN (Urea Nitrogen) 16 mg/dL (9.8-20.1); Calc. Creatinine Clearance 133 mL/min (70-130); Calcium 8.4 mg/dL (7.8-10.44); Carbon Dioxide 25 mmol/L (23-31); Chloride 106 mmol/L (98-107); Cholesterol 140 mg/dl (< 200 Desired); Estimated GFR 101; Glucose 80 mg/dL (80-115); HDL Cholesterol 46 mg/dL (>60 Neg Risk); LDL Cholesterol, Calculated 64 mg/dL; Potassium 2.7 mmol/L (3.5-5.1); Sodium 140 mmol/L (136-145); Triglycerides 149 mg/dL (Less than 150)
[2023-07-09 05:38] LABS: Free T4 (Free Thyroxine) 0.86 ng/dL (0.70-1.48); Thyroid Stimulating Hormone 4.6414 uIU/mL (0.35-4.94)
[2023-07-09] MEDS ORDERED: Electrolyte Replacement Protocol 1 EACH FS PRN (06:43)
[2023-07-09] MEDS: Potassium Chloride 40 MEQ in Sodium Chloride 0.9% 250 ML 250 ML IVPB SCH ×2 (07:41→15:49)
[2023-07-09] MEDS: HumaLOG 300 UNITS/3 ML VIAL SC SCH ×3 (08:01→18:04)
[2023-07-09 08:27] LABS: Magnesium 1.7 mg/dL (1.6-2.6)
[2023-07-09] MEDS ORDERED: Magnesium 2 GM/50 ML(in water) 2 GM in Premix 1 BAG IVPB SCH (10:00)
[2023-07-09] MEDS ORDERED: Regadenoson 0.4 MG/5 ML SYRINGE ONE (10:28)
[2023-07-09] MEDS: Famotidine 20 MG TAB PO SCH ×2 (11:47→21:18)
[2023-07-09] MEDS: Aspirin Chewable 81 MG TAB PO SCH (11:48)
[2023-07-09] MEDS: Enoxaparin 40 MG (0.4 mL) SYRINGE SC SCH (13:50)
[2023-07-09] MEDS: HumaLOG 300 UNITS/3 ML VIAL SC PRN ×2 (13:52→18:05)
[2023-07-09] MEDS: Atorvastatin Calcium 40 MG TAB PO SCH (21:18)
[2023-07-09] MEDS: HumuLIN 70/30 100 Unit/ml 10 ml Vial SC SCH (21:19)
[2023-07-10] MEDS ORDERED: Magnesium 2 GM/50 ML(in water) 2 GM in Premix 1 BAG IVPB SCH (08:00)
[2023-07-10] MEDS: HumaLOG 300 UNITS/3 ML VIAL SC SCH ×3 (08:00→17:44)
[2023-07-10] MEDS: Aspirin Chewable 81 MG TAB PO SCH (09:33)
[2023-07-10] MEDS: Enoxaparin 40 MG (0.4 mL) SYRINGE SC SCH (09:33)
[2023-07-10] MEDS: Famotidine 20 MG TAB PO SCH ×2 (09:33→21:21)
[2023-07-10 10:46] LABS: Anion Gap 14 mmol/L (10-20); BUN (Urea Nitrogen) 11 mg/dL (9.8-20.1); Calc. Creatinine Clearance 142 mL/min (70-130); Calcium 8.3 mg/dL (7.8-10.44); Carbon Dioxide 22 mmol/L (23-31); Chloride 105 mmol/L (98-107); Estimated GFR 102; Glucose 187 mg/dL (80-115); Potassium 3.7 mmol/L (3.5-5.1); Sodium 137 mmol/L (136-145)
[2023-07-10] MEDS: HumaLOG 300 UNITS/3 ML VIAL SC PRN ×2 (11:10→17:44)
[2023-07-10] MEDS: HumuLIN 70/30 100 Unit/ml 10 ml Vial SC SCH (21:00)
[2023-07-10] MEDS: Atorvastatin Calcium 40 MG TAB PO SCH (21:21)
[2023-07-11] MEDS: Famotidine 20 MG TAB PO SCH ×2 (08:32→21:10)
[2023-07-11] MEDS: Enoxaparin 40 MG (0.4 mL) SYRINGE SC SCH (08:32)
[2023-07-11] MEDS: HumaLOG 300 UNITS/3 ML VIAL SC SCH ×3 (08:32→16:50)
[2023-07-11] MEDS: Aspirin Chewable 81 MG TAB PO SCH (08:32)
[2023-07-11] MEDS: Atorvastatin Calcium 40 MG TAB PO SCH (21:10)
[2023-07-11] MEDS: HumuLIN 70/30 100 Unit/ml 10 ml Vial SC SCH (21:11)
[2023-07-12 08:16] VITALS: BP 111/72; TEMP 98.3
[2023-07-12] MEDS: HumaLOG 300 UNITS/3 ML VIAL SC SCH (08:20)
[2023-07-12] MEDS: Aspirin Chewable 81 MG TAB PO SCH (08:20)
[2023-07-12] MEDS: Famotidine 20 MG TAB PO SCH (08:21)
[2023-07-12] MEDS: Enoxaparin 40 MG (0.4 mL) SYRINGE SC SCH (08:21)
== END 2023-07-12 16:43 | disposition home or self-care (01) ==
LOC: ERS 15:50 → 2NO 18:49 → T4-B 07-10 14:45
PROVIDERS: ADMIT Hospitalist; ATTEND Hospitalist
DX: R07.9 Chest pain, unspecified (principal); E11.65 Type 2 diabetes mellitus with hyperglycemia; I10 Essential (primary) hypertension; E78.5 Hyperlipidemia, unspecified; E03.9 Hypothyroidism, unspecified; J45.909 Unspecified asthma, uncomplicated; M19.90 Unspecified osteoarthritis, unspecified site; E66.9 Obesity, unspecified; Z90.49 Acquired absence of other specified parts of digestive tract; Z79.4 Long term (current) use of insulin; Z79.84 Long term (current) use of oral hypoglycemic drugs; Z79.890 Hormone replacement therapy; Z79.82 Long term (current) use of aspirin; Z79.899 Other long term (current) drug therapy
CPT/HCPCS: 36415; 36416; 71046; 78452; 80048; 80053; 80061; 83036; 83690; 83735; 84439; 84443; 84481; 84484; 85025; 93005; 93017; 94760; 96361; 96372; 96374; 96375; 96376; A9502; G0378; J1650; J1815; J2785; J3475; J3480; J7050

== ENCOUNTER 2023-11-25 08:39 | Emergency (ER) | payer SELFPAY ==
[2023-11-25] MEDS ORDERED: Ketorolac Tromethamine 30 MG (1 mL) VIAL ONE (09:14)
== END 2023-11-25 09:20 | disposition home or self-care (01) ==
LOC: ERS 08:39
DX: M54.42 Lumbago with sciatica, left side (principal); I10 Essential (primary) hypertension; E11.9 Type 2 diabetes mellitus without complications
CPT/HCPCS: 96372; 99282; J1885

== ENCOUNTER 2023-12-02 13:12 | Emergency (ER) | payer SELFPAY ==
[2023-12-02] MEDS ORDERED: Ketorolac Tromethamine 30 MG (1 mL) VIAL ONE (15:09)
== END 2023-12-02 15:24 | disposition home or self-care (01) ==
LOC: ERS 13:12
DX: M17.12 Unilateral primary osteoarthritis, left knee (principal); E11.9 Type 2 diabetes mellitus without complications; E78.00 Pure hypercholesterolemia, unspecified; I10 Essential (primary) hypertension
CPT/HCPCS: 96372; 99283; J1885

== ENCOUNTER 2023-12-20 10:05 | Emergency (ER) | payer SELFPAY | END 2023-12-20 12:39 | disposition home or self-care (01) | LOC: ERS 10:05 | DX: M25.562 Pain in left knee (principal); M54.50 Low back pain, unspecified; E11.9 Type 2 diabetes mellitus without complications; I10 Essential (primary) hypertension | CPT/HCPCS: 36416; 96372; 99283; J1885 ==

== ENCOUNTER 2023-12-28 20:42 | Emergency (ER) | payer SELFPAY ==
[2023-12-28 22:01] LABS: #Basophils 0.04 10x3/uL (0.0-0.2); %Basophils 0.6 % (0.0-1.0); %Eosinophils 1.8 % (0.0-10.0); %Lymphocytes 25.5 % (21.0-51.0); %Neutrophils 62.8 % (42.0-75.0); Hematocrit 37.1 % (36.0-47.0); Hemoglobin 12.8 g/dL (12.0-16.0); Mean Corpuscular HGB CONC 34.5 g/dL (32.0-36.0); Mean Corpuscular Hemoglobin 29.9 pg (27.0-31.0); Mean Corpuscular Volume 86.7 fL (78.0-98.0); Mean Platelet Volume 11.2 fL (7.4-10.4); Platelet Count 258 10x3/uL (130-400); RBC Distribution Width 12.2 % (11.5-14.5); Red Blood Cell (RBC) Count 4.28 mill/uL (4.20-5.40)
[2023-12-28 22:18] LABS: ALT (SGPT) 20 U/L (8-55); AST (SGOT) 17 U/L (5-34); Albumin 3.6 g/dL (3.4-4.8); Alkaline Phosphatase 124 U/L (40-110); Anion Gap 17 mmol/L (10-20); BUN (Urea Nitrogen) 24 mg/dL (9.8-20.1); Bilirubin, Total 0.9 mg/dL (0.2-1.2); Calc. Creatinine Clearance 0 mL/min (70-130); Calcium 9.4 mg/dL (7.8-10.44); Carbon Dioxide 24 mmol/L (23-31); Chloride 100 mmol/L (98-107); Estimated GFR 75; Globulin 3.3 g/dL (2.4-3.5); Glucose 362 mg/dL (80-115); Protein, Total 6.9 g/dL (5.8-8.1); Sodium 137 mmol/L (136-145)
[2023-12-28 22:22] LABS: Troponin I 0.013 ng/mL (< 0.028)
== END 2023-12-28 23:12 | disposition home or self-care (01) ==
LOC: ERS 20:42
DX: S92.152A Displaced avulsion fracture (chip fracture) of left talus, initial encounter for closed fracture (principal); E11.9 Type 2 diabetes mellitus without complications; I10 Essential (primary) hypertension; X50.1XXA Overexertion from prolonged static or awkward postures, initial encounter
CPT/HCPCS: 36415; 71045; 80053; 84484; 85025; 93005

== ENCOUNTER 2025-03-06 23:25 | Emergency (ER) | payer SELFPAY ==
[2025-03-07 00:40] LABS: #Basophils Less than 0.03 10x3/uL (0.0-0.2); #Eosinophils 0.12 10x3/uL (0.0-0.7); #Monocytes 0.77 10x3/uL (0.11-0.59); #Neutrophils 5.11 10x3/uL (1.40-6.50); %Basophils 0.3 % (0.0-1.0); %Eosinophils 1.5 % (0.0-10.0); %Lymphocytes 22.4 % (21.0-51.0); %Monocytes 9.9 % (0.0-10.0); %Neutrophils 65.5 % (42.0-75.0); Hematocrit 38.1 % (36.0-47.0); Hemoglobin 11.9 g/dL (12.0-16.0); Mean Corpuscular Hemoglobin 28.5 pg (27.0-31.0); Mean Corpuscular Volume 91.1 fL (78.0-98.0); Platelet Count 251 10x3/uL (130-400); Red Blood Cell (RBC) Count 4.18 mill/uL (4.20-5.40); White Blood Cell (WBC) Count 7.80 10x3/uL (4.8-10.8)
[2025-03-07 00:59] LABS: ALT (SGPT) 14 U/L (Less than 34); AST (SGOT) 25 U/L (11-34); Albumin 3.3 g/dL (3.1-4.5); Alkaline Phosphatase 135 U/L (40-110); Anion Gap 16 mmol/L (10-20); BUN (Urea Nitrogen) 27 mg/dL (9.8-20.1); Bilirubin, Total 0.5 mg/dL (0.3-1.2); Calc. Creatinine Clearance 0 mL/min (70-130); Calcium 8.3 mg/dL (7.8-10.44); Carbon Dioxide 23 mmol/L (23-31); Chloride 103 mmol/L (98-107); Globulin 3.2 g/dL (2.4-3.5); Glucose 312 mg/dL (80-115); Potassium 4.0 mmol/L (3.5-5.1); Sodium 138 mmol/L (136-145)
[2025-03-07] MEDS ORDERED: Metoclopramide HCl 10 MG (2 mL) VIAL ONE (02:58)
[2025-03-07] MEDS ORDERED: diphenhydrAMINE 50 MG/ML VIAL ONE (02:58)
[2025-03-07] MEDS ORDERED: Methocarbamol 500 MG TAB ONE (02:58)
[2025-03-07] MEDS ORDERED: Ketorolac Tromethamine 30 MG (1 mL) VIAL ONE (04:31)
== END 2025-03-07 04:37 | disposition home or self-care (01) ==
LOC: ERS 23:25
DX: R51.9 Headache, unspecified (principal); I10 Essential (primary) hypertension
CPT/HCPCS: 36415; 70450; 80053; 85025; 96374; 96375; J1200; J1885; J2765

== ENCOUNTER 2025-06-14 08:12 | Emergency (ER) | payer SELFPAY ==
[2025-06-14] MEDS ORDERED: Ketorolac Tromethamine 30 MG (1 mL) VIAL ONE (09:00)
[2025-06-14] MEDS ORDERED: Dexamethasone 10 MG/ML VIAL ONE (09:00)
== END 2025-06-14 10:06 | disposition home or self-care (01) ==
LOC: ERS 08:12
DX: J11.1 Influenza due to unidentified influenza virus with other respiratory manifestations (principal); E11.9 Type 2 diabetes mellitus without complications; I10 Essential (primary) hypertension; E78.5 Hyperlipidemia, unspecified; Z79.82 Long term (current) use of aspirin; Z79.84 Long term (current) use of oral hypoglycemic drugs; Z79.899 Other long term (current) drug therapy
CPT/HCPCS: 71045; 87081; 87428; 87430; 96372; J1100; J1885